=== PATIENT | female | born 1985 | race Caucasian/White ===

== ENCOUNTER 2025-05-29 07:29 | Emergency (ER) | payer BC, SELFPAY ==
[2025-05-29 07:37] VITALS: BP 130/100
--- NOTE | 2025-05-29 07:54 | ED.GENMED ---
History of Present Illness
General
Chief Complaint: Extremity Pain (non-traumatic)
Source: patient
Exam Limitations: none
Time Seen by Provider: 05/29/25 07:45
Nursing documentation reviewed up to this point in time: agreed with
History of Present Illness
History of Present Illness:
Patient is a 40-year-old female with history hypertension who presents to the emergency department with 2 weeks of right shoulder discomfort. Patient states symptoms initially began about 2 weeks ago, 1 day after she was forcibly pulled by her dog
while taking a walk. She states that her arm was pulled forward when her dog started chasing a squirrel.
Pain has been progressively worsening over the past few weeks and exacerbated with certain motions, especially when her arm is hanging. She describes a squeezing type pain radiating from her shoulder into her right upper arm. She denies any
numbness, tingling in right upper extremity/fingers. No weakness in right arm. No neck pain. No fevers, chest pain, or shortness of breath.
She has been taking ibuprofen at home with minimal improvement in symptoms.
Review of Systems
Review of Systems
Allergies reviewed?: Yes
All Other Systems: ROS reviewed and negative except as documented in HPI and ROS
Phy Exam
Physical Exam
Physical Exam:
Vitals: Hypertensive, otherwise vital signs stable. Afebrile
General: Patient is well appearing, no acute distress. Nontoxic appearing
Skin: Warm and dry, no rashes or lesions
Head: Normocephalic, atraumatic
Throat: Protecting airway
Neck: Normal ROM, no cervical spine tenderness
Cardiac: Regular rate
Pulm: No apparent respiratory distress
Abdomen: Nondistended
Extremities: Mild reproducible tenderness in right upper arm. No bony tenderness of right shoulder or right clavicle. No obvious deformity or erythema, warmth, or swelling of RUE. Patient has excellent active range of motion in right shoulder and
right elbow against resistance. 2+ palpable right radial and brachial pulse. Capillary refill WNL.
Neuro: Grossly intact
Psychiatric: Normal affect.
Course
Orders/Labs/Results
Orders:
Orders
05/29/25 07:59
Ketorolac [Toradol] 15 mg IM NOW STA
Shoulder, Right 2 Views [CR Shoulder - Right Min 2 View] Urgent
Comment:
Reason For Exam: R shoulder pain
05/29/25 09:52
Sling Right-Treatment ONCE
Vital Signs
Initial and Last Documented VS:
Initial Vital Signs
Temp Pulse Resp BP Pulse Ox
98.3 F 75 16 130/100 98
05/29/25 07:37 05/29/25 07:37 05/29/25 07:37 05/29/25 07:37 05/29/25 07:37
Last Documented Vital Signs
Temp Pulse Resp BP Pulse Ox
98.6 F 82 20 136/81 99
05/29/25 08:13 05/29/25 08:13 05/29/25 08:13 05/29/25 08:13 05/29/25 08:13
MDM/Problems Addressed
Differential Diagnosis Includes:
Not limited to: Rotator cuff muscle strain, neuropathic pain, AC joint separation, shoulder dislocation, etc.
MDM/Problems Addressed:
40-year-old female with two weeks of progressively worsening right shoulder pain. Seemed to begin after arm injury while walking her dog. No numbness/tingling in affected arm. Vitals and physical exam as above. Patient has mild reproducible
tenderness in right upper arm without any obvious deformity. No bony tenderness or obvious swelling/erythema. RUE neurovascularly intact.
X-ray of right shoulder with likely benign growth of right proximal humerus which patient was made aware of. No evidence of acute injury.
Overall impression is likely muscular strain. No finding suggestive of infectious or vascular process. Will place patient in shoulder sling and advise supportive care at home and orthopedic follow up. Return precautions discussed. Patient
comfortable with discharge home.
Chronic conditions affecting care:
Hypertension
Acute Exacerbation and/or Progression of Chronic Illness:
Acutely hypertensive
*Radiology
Radiology exam reviewed: preliminary read by ED provider (Shoulder x-ray reviewed by me-no acute abnormalities) and radiology read reviewed
*Pulse Oximetry
SaO2: 98
Oxygen Mode of Delivery: Room air
Patient hypoxic: no
*EKG
Interpreted by ED Provider?: NA
*Bottom Sander Interpretation
Rate: Bottom Sander- N/A
*Critical Care Note
Total Time (30-74mins, 75-104mins- exclusive of procedures): Not Applicable
ED Attending Note
-
Portions of this chart may have been created with voice recognition software.� Occasional wrong word or��sound alike� substitutions may have occurred due to the inherent limitations of voice recognition software.
Discharge Plan
Departure
Patient Disposition: Home (Routine Discharge)
Date of Disposition: 05/29/25
Time of Disposition: 10:06
Patient with high blood pressure during this ER visit?: Yes
Discharge Problem:
Pain in right shoulder
Instructions: Shoulder pain - ED (DC), BLOOD PRESSURE
Prescriptions:
No Action
No Current Medications
0
Referrals:
Nahid Yañez MD [Active, Orthopedics] - Next open appointment
UNKNOWN - PT DOES,NOT KNOW [Family Provider]
Activity Restrictions/Additional Instructions:
RETURN TO THE EMERGENCY DEPARTMENT WITH ANY INTRACTABLE PAIN, NUMBNESS/TINGLING IN RIGHT ARM, SIGNIFICANT SWELLING, WARMTH, OR REDNESS OF RIGHT ARM, WORSENING IN CURRENT SYMPTOMS, OR ANY OTHER CONCERNS
- As discussed�the x-ray of your right shoulder showed no evidence of acute fracture. There was a incidental lesion noted near your right humeral head. Please follow-up with your primary care/orthopedics for possible MRI of this for further
visualization.
- Please keep right arm in sling to provide support. Take Tylenol and/or Motrin as needed for pain. Please be sure to remove the sling 5 times a day and range your shoulder joint.
- Follow-up with orthopedics for further evaluation/management to ensure that your symptoms are improving. You may require further imaging
Monitor your symptoms closely and return to the emergency department with any acute worsening/new symptoms or any other concerns
Interventions
Interventions:
*Risk Screen - Suicide Last Done: 05/29/25 07:37
*General Assessment Last Done: 05/29/25 07:37
*Neglect/Abuse Screening Last Done: 05/29/25 07:37
*ED- Fall Risk Assessment Last Done: 05/29/25 08:13
*ED COVID-19 Vaccine History Last Done: 05/29/25 07:37
*Nursing Disposition Last Done: 05/29/25 10:41
ED-Skin Assessment Last Done: 05/29/25 08:13
ED-Peripheral Vascular Assessment Last Done: 05/29/25 08:13
ED-Musculoskeletal Assessment Last Done: 05/29/25 08:13
Discharge Date and Time
Discharge Date/Time: 05/29/25 10:42
Print Language: ROMANIAN
[2025-05-29 08:13] VITALS: BP 136/81; BMI 25.9
[2025-05-29] MEDS: TORADOL 15 MG IM (09:34)
== END 2025-05-29 10:42 | disposition home or self-care (01) ==
LOC: EMR 07:29
PROVIDERS: EMERGENCY PHYSICIAN Emergency Medicine
DX: M25.511 Pain in right shoulder (principal); I10 Essential (primary) hypertension; X58.XXXA Exposure to other specified factors, initial encounter; Y93.K1 Activity, walking an animal
CPT/HCPCS: 96372; 99284; 73030